=== PATIENT | female | born 1980 | race Hispanic/Latino ===

== ENCOUNTER 2019-01-28 00:05 | Emergency (ER) | payer MEDICAID ==
[~2019-01-28 00:05] MED LIST: AMIT10TA6 PO; ASPI-555 PO; FERR-82 PO; FLUO40CA7 PO; GABA600T10 PO; INSU100I3 SQ; LISI40TA4 PO; METF-446 PO; TRAM-355 PO
[2019-01-28] MEDS ORDERED: CYCLOBENZAPRINE HCL 10 MG TABLET ONE (00:28)
[2019-01-28] MEDS ORDERED: KETOROLAC TROMETHAMINE 30MG/ML ONE (00:28)
[2019-01-28] MEDS ORDERED: HYDROCODONE/ACETAMINOPHEN 10/325 MG TAB ONE (00:29)
== END 2019-01-28 02:41 | disposition home or self-care (01) ==
LOC: EDH 00:05
DX: M43.6 Torticollis (principal); E78.5 Hyperlipidemia, unspecified; E11.9 Type 2 diabetes mellitus without complications; F41.9 Anxiety disorder, unspecified; F32.9 Major depressive disorder, single episode, unspecified; I10 Essential (primary) hypertension; Z98.890 Other specified postprocedural states
CPT/HCPCS: 96372; 99283; J1885